=== PATIENT | female | born 1995 | race Caucasian/White ===

== ENCOUNTER 2018-06-19 13:48 | Emergency (ER) | payer OTHER ==
[2018-06-19 14:07] VITALS: BP 117/86; PULSE 98; RESP 18; TEMP 99; O2SAT 100
--- NOTE | 2018-06-19 14:53 | C.PDOC ---
History Of Present Illness 22 y/o female pt presents to the ER c/o right thumb injury. Pt reports she was skiing yesterday when she fell and injured her right thumb. Pain is worse with movement. Pt has no other injuries or complaints. Time Seen by Provider: 06/19/18 13:58 Chief Complaint (Nursing): Finger,Hand,&Wrist History Per: Patient History/Exam Limitations: no limitations Onset/Duration Of Symptoms: Days (x1) Current Symptoms Are (Timing): Still Present Past Medical History Reviewed: Historical Data, Nursing Documentation, Vital Signs Vital Signs: Last Vital Signs Temp 99 F 06/19/18 14:05 Pulse 98 H 06/19/18 14:05 Resp 18 06/19/18 14:05 BP 117/86 06/19/18 14:05 Pulse Ox 100 06/19/18 14:05 Family History: States: No Known Family Hx - Social History Hx Alcohol Use: No Hx Substance Use: No - Immunization History Hx Tetanus Toxoid Vaccination: No Hx Influenza Vaccination: No Hx Pneumococcal Vaccination: No Review Of Systems Except As Marked, All Systems Reviewed And Found Negative. Musculoskeletal: Positive for: Other (thumb pain ) Physical Exam - Physical Exam Appears: Non-toxic, No Acute Distress Skin: Warm, Dry Head: Atraumatic, Normacephalic Eye(s): bilateral: Normal Inspection, PERRL, EOMI Nose: Normal Oral Mucosa: Moist Chest: Symmetrical Cardiovascular: Rhythm Regular Respiratory: Normal Breath Sounds, No Rales, No Rhonchi, No Wheezing Gastrointestinal/Abdominal: Normal Exam, Soft, No Tenderness Extremity: No Normal ROM (decreased ROM due to pain ), Capillary Refill (<2 sec), No Deformity, Swelling (right first digit ) Pulses: Right Brachial: Normal Neurological/Psych: Oriented x3, Normal Speech, Normal Cognition, Normal Motor, Normal Sensation ED Course And Treatment O2 Sat by Pulse Oximetry: 100 (RA) Pulse Ox Interpretation: Normal - Other Rad Right hand X-Ray: Interpreted by Me, Viewed By Me Interpretation: distal fx of metacarpal. finger fx Medical Decision Making Medical Decision Making: Assessment: right thumb injury Plans: -- Right hand XR Finger was splinted by tech and pt was advised to f/u with orthopedics in 1-2 days. Disposition Counseled Patient/Family Regarding: Studies Performed, Diagnosis, Need For Followup, Rx Given - Disposition Referrals: Radha Dai MD [Staff Provider] - Disposition: HOME/ ROUTINE Disposition Time: 14:51 Condition: STABLE Additional Instructions: follow up with orthopaedic within 2 days call to make an appointment pain medication as needed return to ER if symptoms worsens or progress Prescriptions: Naproxen [Naprosyn] 500 mg PO BID PRN #16 tab PRN Reason: Pain, Moderate (4-7) Instructions: Hand Fracture (DC) Forms: General Discharge Instructions, [facility] ([place]), Work Excuse - Clinical Impression Clinical Impression: Finger fracture, right - Scribe Statement The provider has reviewed the documentation as recorded by the Finesse Dumas Do Provider Attestation: All medical record entries made by the Scribe were at my direction and personally dictated by me. I have reviewed the chart and agree that the record accurately reflects my personal performance of the history, physical exam, medical decision making, and the department course for this patient. I have also personally directed, reviewed, and agree with the discharge instructions and disposition.
--- NOTE | 2018-06-19 16:00 | RAD ---
PROCEDURE: Right Hand Radiographs. HISTORY: fall, hand pain COMPARISON: None. FINDINGS: BONES: Normal. No fracture. JOINTS: Normal. No osteoarthritic changes. SOFT TISSUES: Normal. OTHER FINDINGS: None. IMPRESSION: No evidence of acute fracture or dislocation.
== END 2018-06-19 15:06 | disposition home or self-care (01) ==
LOC: C.ER 13:48
DX: S62.501A Fracture of unspecified phalanx of right thumb, initial encounter for closed fracture (principal); W18.30XA Fall on same level, unspecified, initial encounter; Y93.23 Activity, snow (alpine) (downhill) skiing, snowboarding, sledding, tobogganing and snow tubing